=== PATIENT | female | born 2000 | race Caucasian/White ===

== ENCOUNTER 2020-06-28 18:31 | Emergency (ER) | payer OTHER, SELFPAY ==
[2020-06-28 18:51] VITALS: BP 157/94; PULSE 105; RESP 20; TEMP 36.9; O2SAT 99
[2020-06-28] MEDS: LORazepam INJ (*CRX) 2 MG/ML VIAL 0.5 MG IM (19:12)
--- NOTE | 2020-06-28 19:14 | ED.GENADULT ---
HPI - General Adult General Chief complaint: Extremity Injury, Upper Stated complaint: pain shooting up arm,jaw pain,tightness in chest Source: patient Mode of arrival: ambulatory Limitations: no limitations History of Present Illness HPI narrative: Ying is a 19F with a PMH of anxiety and Reynaud's phenomena that presents to the ER with some intermittent and non-specific pains in her left arm and left jaw. She also reports some chest tightness and tingling. Occasionally she feels like her heart is beating fast and she feels SOB but then it goes away. No N/V, or syncope/near-syncope. Related Data Home Medications Medication Instructions Recorded Confirmed norgestimate-ethinyl estradiol 1 tablet PO DAILY 08/21/19 06/28/20 [Sprintec (28)] 5ht 1 tab-cap PO DAILY 06/28/20 06/28/20 Allergies Allergy/AdvReac Type Severity Reaction Status Date / Time ibuprofen Allergy Mild Rash Verified 06/28/20 19:00 Sulfa (Sulfonamide Allergy Mild Rash Unverified 06/28/20 19:00 Antibiotics) POTASSIUM CLAVULANATE Allergy Mild Redness of Uncoded 06/28/20 19:00 Skin Review of Systems Constitutional: Constitutional: Reports no additional constitutional complaints Eyes: Eyes: Reports no additional eye complaints ENT: Reports system reviewed and no additional complaints, except as documented Cardiovascular: Cardiovascular: Reports as per HPI Respiratory: Respiratory: Reports as per HPI Gastrointestinal: Gastrointestinal: Reports no additional gastrointestinal complaints Genitourinary: Genitourinary: Reports no additional female genitourinary complaints Musculoskeletal: Musculoskeletal: Reports as per HPI Integumentary/Breasts: Skin/Breast: Reports system reviewed and no additional complaints, except as docu Neurologic: Reports system reviewed and no additional complaints, except as documented Psychiatric: Psychiatric: Reports no additional psychiatric complaints Endocrine: Endocrine: Reports no additional endocrine complaints Hematologic/Lymphatic: Hematologic/Lymphatic: Reports no additional hematologic/lymphatic complaints Allergic/Immunologic: Allergic/Immunologic: Reports no additional allergic/immunologic complaints [facility] Social History Social History Gender identity (if verbalized by the patient): Female Exam Const: General: no acute distress and alert Orientation/consciousness: patient oriented x3 Limitations: No altered mental status HENMT: Head: normal to inspection Other: atraumatic. No jaw deformity, no crepitus and no TTP Eyes: Conjunctivae: conjunctivae normal Pupils: Equal, round and reactive pupils present Neck: Neck: normal visual inspection Chest: Chest palpation & inspection: normal inspection of the chest and no tenderness Other: No TTP Resp: Effort & Inspection: normal respiratory effort, not labored, not tachypneic and no use of accessory muscles Auscultation: clear to auscultation bilaterally Cardio: Rate: regular rate Rhythm: regular rhythm Heart sounds: no murmurs GI: GI Palp: Yes Soft to palpation, No Tenderness to palpation present (GI) and No Guarding due to palpation present (GI) Skin: General skin exam: normal color Rashes: no rashes Neuro: General: patient oriented x3, moves all extremities and CN's II-XI intact bilaterally Extrem: Other: left hand is slightly duskish but has great capillary refill and a strong pulse. No TTP. Neither arm is TTP and there is no deformity. 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 Psych: Appearance: well kempt Mental Status: mental status grossly normal Affect: Anxious affect present Thought content: Yes Normal thought content present Course Course Emergency Course: Ying was seen and evaluated. As it was believed her symptoms were from anxiety she was given IM ativan. About 30 minutes after administration she was feeling be
[2020-06-28 19:57] VITALS: PULSE 95; RESP 20; O2SAT 100
== END 2020-06-28 19:58 | disposition home or self-care (01) ==
PROVIDERS: Emergency Provider Family Medicine; PCP Family Medicine
DX: F41.9 Anxiety disorder, unspecified (principal)
CPT/HCPCS: 96372; 99283; J2060

== ENCOUNTER 2020-07-01 11:47 | Emergency (ER) | payer OTHER, SELFPAY ==
--- NOTE | ~2020-07-01 | XR_ITS ---
EXAMINATION: XR shoulder LT min 2V DATE: 07/01/2020 13:18 INDICATION: Left shoulder pain. TECHNIQUE: 4 views of left shoulder were obtained. COMPARISON: None. FINDINGS: Bone alignment is normal. No fracture. Joint spaces are well maintained. IMPRESSION: 1. Normal left shoulder. Reviewed, dictated and finalized at location A. IMPRESSION: 1. Normal left shoulder.
--- NOTE | ~2020-07-01 | XR_ITS ---
EXAMINATION: XR chest 2V DATE: 07/01/2020 13:18 INDICATION: Chest and arm and shoulder pain. TECHNIQUE: Frontal and lateral views of the chest were obtained. COMPARISON: None. FINDINGS: The chest demonstrates clear lungs without pneumonia, pleural effusion, or pneumothorax. Th e heart size is normal. IMPRESSION: 1. No acute cardiopulmonary disease. Reviewed, dictated and finalized at location A.
--- NOTE | 2020-07-01 12:19 | ED.GENADULT ---
HPI - General Adult General Chief complaint: Extremity Injury, Upper Stated complaint: arm stiffness worsening Source: patient Mode of arrival: ambulatory Limitations: no limitations History of Present Illness HPI narrative: Ying presented to the ED with pain in her axilla and upper arm that began to get worse 2 days ago. She was seen in the ED here with non-specific pain in her arm and jaw. She was diagnosed with anxiety as symptoms resolved with ativan. However, she then had concerns with her veins changing color so she attempted to see her regular doctor that sent her to the [place] emergency department. She reportedly had a negative cardiac workup there. Starting 2 days ago she started to have a shooting pain that starts just posterior to her left elbow and travels up the triceps region into the posterior shoulder and axilla. No SOB, central or right sided chest pain, syncope/near-syncope, nausea or vomiting. She did not take any meds at home for this. Related Data Home Medications Medication Instructions Recorded Confirmed norgestimate-ethinyl estradiol 1 tablet PO DAILY 08/21/19 07/01/20 [Sprintec (28)] 5ht 1 tab-cap PO DAILY 06/28/20 07/01/20 Allergies Allergy/AdvReac Type Severity Reaction Status Date / Time ibuprofen Allergy Mild Rash Verified 06/28/20 19:00 Sulfa (Sulfonamide Allergy Mild Rash Unverified 06/28/20 19:00 Antibiotics) POTASSIUM CLAVULANATE Allergy Mild Redness of Uncoded 06/28/20 19:00 Skin Review of Systems Constitutional: Constitutional: Reports no additional constitutional complaints Eyes: Eyes: Reports no additional eye complaints ENT: Reports system reviewed and no additional complaints, except as documented Cardiovascular: Cardiovascular: Reports as per HPI Respiratory: Respiratory: Reports no additional respiratory complaints Gastrointestinal: Gastrointestinal: Reports no additional gastrointestinal complaints Genitourinary: Genitourinary: Reports no additional female genitourinary complaints Musculoskeletal: Musculoskeletal: Reports as per HPI Integumentary/Breasts: Skin/Breast: Reports system reviewed and no additional complaints, except as docu Neurologic: Reports system reviewed and no additional complaints, except as documented Psychiatric: Psychiatric: Reports no additional psychiatric complaints Endocrine: Endocrine: Reports no additional endocrine complaints Hematologic/Lymphatic: Hematologic/Lymphatic: Reports no additional hematologic/lymphatic complaints Allergic/Immunologic: Allergic/Immunologic: Reports no additional allergic/immunologic complaints [facility] Social History Social History Gender identity (if verbalized by the patient): Female Exam Const: General: no acute distress and alert Orientation/consciousness: patient oriented x3 Limitations: No altered mental status HENMT: Head: normal to inspection Eyes: Conjunctivae: conjunctivae normal Pupils: Equal, round and reactive pupils present Neck: Neck: normal visual inspection Chest: Chest palpation & inspection: normal inspection of the chest Resp: Effort & Inspection: normal respiratory effort Auscultation: clear to auscultation bilaterally Cardio: Rate: regular rate Rhythm: regular rhythm GI: Other: normal bowel sounds Skin: General skin exam: normal color Rashes: no rashes Neuro: General: patient oriented x3 and moves all extremities Other: 5/5 strength through the upper extemities Extrem: Other: NOrmal ROM of the right shoudler and elbow. Left shoulder cannot be abducted to 80 degrees and also has very limited external rotation. Upon trying to passively abduct and externall rotate the arm she has a reportduction over the shooting pain from her posterior upper arm to her axilla. 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 Sen
[2020-07-01 12:32] VITALS: BP 146/98; PULSE 115; RESP 20; TEMP 37; O2SAT 98
[2020-07-01 13:40] VITALS: PULSE 115; RESP 20; O2SAT 98
== END 2020-07-01 13:42 | disposition home or self-care (01) ==
PROVIDERS: Emergency Provider Family Medicine
DX: G54.0 Brachial plexus disorders (principal)
CPT/HCPCS: 71046; 73030; 99283; 99284

== ENCOUNTER 2020-10-11 08:41 | Emergency (ER) | payer OTHER, SELFPAY ==
[2020-10-11] VITALS (7 sets, daily range): BP systolic 97–156; BP diastolic 61–100; PULSE 88–114; RESP 11–25; TEMP 36.6; O2SAT 100
--- NOTE | ~2020-10-11 | CT_ITS ---
EXAMINATION: CTA chest PE protocol DATE: 10/11/2020 12:08 INDICATION: Chest pain. TECHNIQUE: Computed tomography angiography (CTA) of the chest was performed with 100 mL Omnipaque-350 intravenous contrast timed to evaluate the pulmonary arteries. Coronal maximum intensity projection 3D-reconstructions were created by the technologist. Automated exposure control and iterative reconst ruction technique were employed. The dose-length product was 728.08 mGy-cm. COMPARISON: Chest 2 views 10/11/2020 FINDINGS: The lungs demonstrate minimal atelectasis. No pleural effusion. The heart size is normal. N o pericardial effusion. There is no pulmonary embolus. There is mild thoracic spondylosis. IMPRESSION: 1. No pulmonary embolus. Reviewed, dictated and finalized at location A. NICAL SERVICES COORDINATOR IMPRESSION: 1. No pulmonary embolus.
--- NOTE | ~2020-10-11 | XR_ITS ---
EXAMINATION: XR chest 2V EXAM DATE: 10/11/2020 09:53 INDICATION: Chest pain, left arm pain. TECHNIQUE: Frontal and lateral projections of the chest obtained and reviewed. Comparison is made to prior examination from 07/01/2020. FINDINGS: The lungs are clear. There are no pleural effusions. The cardiomediastinal silhouette is within normal limits. There is no pneumothorax suspected. The bones and soft tissues are unremarkab le. IMPRESSION: No acute cardiopulmonary findings. Reviewed, dictated and finalized at location A. TER HELPER
--- NOTE | 2020-10-11 08:53 | ECG_ITS ---
Measurements Intervals [place] Rate: 114 P: 46 LA: 124 QRS: 12 QRSD: 88 T: 51 QT: 325 QTc: 448 Interpretive Statements SINUS TACHYCARDIA INCOMPLETE RIGHT BUNDLE BRANCH BLOCK DELAYED PRECORDIAL R/S TRANSITION BORDERLINE T WAVE ABNORMALITY- INFERIOR LEADS BASELINE WANDER- V3 ABNORMAL ECG Electronically Signed On 10-11-2020 9:08:45 MOGUL OPERATOR by Galdino Awad D.O.
--- NOTE | 2020-10-11 09:12 | ED.CHESTPAIN ---
HPI - Chest Pain General Chief Complaint: Chest Pain Stated Complaint: chest pain, lt arm pain Time Seen by Provider: 10/11/20 08:55 History of Present Illness HPI narrative: 20 yo female w/ h/o thoracic outlet syndrome presents to the ED with multiple complaints. She reports that last night she started having pain near the left scapula. Today that pain spread into the chest and arm. She noted that the left arm was also numb and her veins seemed to be blue and bulging. She was still able to move the arm. She has had the same symptoms in the past and was diagnosed with thoracic outlet syndrome. Related Data Home Medications Medication Instructions Recorded Confirmed norgestimate-ethinyl estradiol 1 tablet PO DAILY 08/21/19 07/01/20 [Sprintec (28)] 5ht 1 tab-cap PO DAILY 06/28/20 07/01/20 Allergies Allergy/AdvReac Type Severity Reaction Status Date / Time Sulfa (Sulfonamide Allergy Mild Rash Verified 10/11/20 09:49 Antibiotics) amoxicillin [From Augmentin] Allergy Unknown Verified 10/11/20 09:49 clavulanic acid Allergy Unknown Verified 10/11/20 09:49 [From Augmentin] Review of Systems Review of Systems: All systems reviewed & are unremarkable except as noted in HPI and below Constitutional: Constitutional: Reports chills and Reports fever(s) ENT: Reports dizziness Cardiovascular: Cardiovascular: Reports chest pain Respiratory: Respiratory: Reports dyspnea Gastrointestinal: Gastrointestinal: Denies abdominal pain and Denies nausea Musculoskeletal: Musculoskeletal: Reports back pain Neurologic: Reports dizziness, Reports numbness and Denies weakness PMFSH Past Medical History Medical History Thoracic outlet syndrome Social History Social History Gender identity (if verbalized by the patient): Female Exam Const: General: healthy appearing, no acute distress and alert Nutritional Appearance: well nourished Orientation/consciousness: patient oriented x3 HENMT: Head: normal to inspection Neck: Neck: normal visual inspection and no lymphadenopathy Chest: Chest palpation & inspection: no tenderness Resp: Effort & Inspection: normal respiratory effort Auscultation: clear to auscultation bilaterally, no rales, no rhonchi and no wheezes Cardio: Jugular venous distension: no JVD Rate: tachycardic Rhythm: regular rhythm Heart sounds: no murmurs Other: Radial pulses 2+ and equal bilaterally GI: Inspection: non-distended GI Palp: Yes Soft to palpation and No Tenderness to palpation present (GI) Back/Spine/Pelvis: Other: tenderness medial to the left scapula Skin: Other: finger tips bluish discoloration bilaterally, worse on the left. Neuro: General: patient oriented x3 and moves all extremities Speech: normal speech Extrem: Other: Full ROM Psych: Appearance: well kempt Affect: Anxious affect present Course Vital Signs Vital signs: Vital Signs Pulse Rate 104 H 10/11/20 08:49 Respiratory Rate 25 H 10/11/20 08:49 Blood Pressure 156/100 H 10/11/20 08:49 Temperature 36.6 C 10/11/20 08:50 Pulse Rate 93 10/11/20 13:05 Respiratory Rate 16 10/11/20 13:05 Blood Pressure 118/61 10/11/20 13:05 Pulse Oximetry 100 10/11/20 13:05 MDM - Chest Pain MDM Narrative Medical decision making narrative: Symptoms are consistent with thoracic outlet. Could be connective tissue disorder as well. Symptoms resolved prior to discharge. Medical Records Data Attestation: I reviewed the patient's medical records. Lab Data Attestation: I reviewed the patient's lab results. Result diagrams: 10/11/20 09:09 10/11/20 09:09 Labs: Lab Results 10/11/20 10/11/20 10/11/20 Range/Units 09:09 09:09 09:09 WBC 5.5 (4.5-10.0) K/mm3 RBC 5.24 (4.2-5.4) M/mm3 Hgb 14.5 (12.0-15.0) g/dL Hct 44.4 (37.0-47.0) % MCV 84.7
[2020-10-11 09:21] LABS: Basophils Percent Auto 0.5 % (0.2-1.2); Eosinophils Percent Auto 0.7 % (0-4.4); Hematocrit 44.4 % (37.0-47.0); Hemoglobin 14.5 g/dL (12.0-15.0); Immature Granulocyte Absolute 0.02 K/mm3 (0.00-0.031); Immature Granulocyte Percent A 0.4 % (0-0.5); Lymphocytes Absolute Auto 1.55 K/mm3 (0.9-3.2); Mean Corpuscular HGB Conc 32.7 g/dl (32-36); Mean Corpuscular Hemoglobin 27.7 pg (26-34); Mean Corpuscular Volume 84.7 fl (80-100); Mean Platelet Volume 10.2 fl (7.4-10.4); Monocytes Absolute Auto 0.6 K/mm3 (0.1-0.6); Monocytes Percent Auto 9.9 % (2.6-8.5); Neutrophils Absolute Auto 3.4 K/mm3 (1.3-6.7); Neutrophils Percent Auto 60.5 % (45.5-73.1); Platelet Count Result 302 k/mm3 (150-375); Red Blood Count 5.24 M/mm3 (4.2-5.4); Red Cell Distribution Width 13.2 % (11.5-14.5); White Blood Count 5.5 K/mm3 (4.5-10.0)
[2020-10-11 09:29] LABS: Anion Gap 12 mmol/L (8-16); Blood Urea Nitrogen 15 mg/dL (7-17); Calcium 9.2 mg/dL (8.4-10.2); Carbon Dioxide 26 mmol/L (22-30); Chloride 102 mmol/L (98-107); Estimated CRCL calculation 125 ml/min; Estimated Glomerular Filt Rate > 60; Glucose 90 mg/dL (65-105); Potassium 4.3 mmol/L (3.4-5.0); Sodium 140 mmol/L (137-145)
[2020-10-11 09:33] LABS: INR 0.9; Partial Thromboplastin Time 25.8 SECONDS (22.3-36.8); Prothrombin Time 12.5 Seconds (11.1-14.7)
[2020-10-11 09:40] LABS: Troponin I < 0.012 ng/mL (0.000-0.034)
[2020-10-11] MEDS: SODIUM CHLORIDE 0.9% IV 1,000 ML 999 ML IV CONT (09:41)
[2020-10-11] MEDS: LORazepam INJ (*CRX) 2 MG/ML VIAL 0.5 MG IV PUSH (09:41)
[2020-10-11 11:06] LABS: D Dimer 0.65 ug/mL (<0.48)
== END 2020-10-11 13:05 | disposition home or self-care (01) ==
PROVIDERS: Emergency Provider Emergency Medicine; Family Provider Pediatrics
DX: R07.9 Chest pain, unspecified (principal); R20.2 Paresthesia of skin; G54.0 Brachial plexus disorders
CPT/HCPCS: 36415; 71046; 71275; 80048; 81025; 84484; 85025; 85380; 85610; 85730; 93005; 96361; 96374; 99284; J2060; J7030; Q9967